=== PATIENT | female | born 1965 | race Caucasian/White ===

== ENCOUNTER 2018-08-02 11:33 | Emergency (ER) | payer OTHER ==
--- NOTE | 2018-08-02 11:51 | EDM.PDOC ---
ED HPI GENERAL MEDICAL PROBLEM - General Chief Complaint: Laceration Stated Complaint: laceration Time Seen by Provider: 08/02/18 11:45 Source of Information: Reports: Patient. Denies: Old Records (No [facility] records available) History Limitations: Reports: No Limitations - History of Present Illness INITIAL COMMENTS - FREE TEXT/NARRATIVE: The patient was brought to the emergency room via transport vehicle from [facility] for evaluation of a Workmen's Compensation injury, which occurred at about 10: 50 a.m. this morning. The patient was walking back from the bathroom when she had a minor stumble cutting her left forearm on a screen cart with no history of foreign body, fall, or other significant injury, including paresthesias, neurological deficits, exacerbation of her chronic neck/back pain, head injury, etc.. She rates her discomfort at 4-5/10 with laceration site washout with soap and water and dressing placed prior to arrival. The patient denies any chest pain/pressure, heart flutter, dizziness, orthostasis, orthopnea, diaphoresis, paresthesias, recent decreased exercise tolerance, or any other anginal-type symptoms. No recent history of abdominal pain, heartburn, nausea, diarrhea, melena, gross hematochezia, or any food intolerance, including fatty foods, etc.. The patient also denies any recent fever, cough, wheezing, dyspnea, etc.. She is right-handed. Onset: Today, Sudden Onset Date: 08/02/18 Onset Time: 10:50 Duration: Constant Location: Reports: Upper Extremity, Left. 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 HOUSE MOVER HELPER History: Reports: , Spontaneous : 2 Para: 1 LMP (Approximate): Other (See Below) Other HOUSE MOVER HELPER History: Menopause at age 48. Patient did have a tubal with surgery required at 6 weeks gestation as below. Otherwise, Full term without complications during pregnancies or deliveries Musculoskeletal History: Reports: Back Pain, Chronic, Neck Pain, Chronic, Osteoarthritis. Denies: Fracture, Gout, RA, SLE Neurological History: Reports: Other (See Below) Other Neuro History: Chronic insomnia - Past Surgical History Female Surgical History: Reports: Other (See Below) Other Female Surgeries/Procedures: Laparoscopic surgery for tubal in the . Neurological Surgical History: Reports: C-Spine, Spinal Fusion, Other (See Below ) Other Neurological Surgeries/Procedures: Spinal fusion of C3-C-4 in about 2012. Social & Family History - Tobacco Use Smoking Status *Q: Current Every Day Smoker Tobacco Use Within Last Twelve Months: Cigarettes Years of Tobacco use: 36 Packs/Tins Daily: 1 Packs/Tins Daily Comment: She started smoking at age 17. Used Tobacco, but Quit: No Smoking Cessation Information Provided To Patient: Yes Second Hand Smoke Exposure: No Second Hand Smoke Education Provided: No - Living Situation & Occupation Living situation: Reports: (1986, 1 child), with Family Occupation: Employed ([employer]) ED ROS GENERAL - Review of Systems Review Of Systems: ROS reveals no pertinent complaints other than HPI. ED EXAM, SKIN/RASH Exam: See Below Exam Limited By: No Limitations General Appearance: Alert, WD/WN, No Apparent Distress Head: Atraumatic, Normocephalic. No: Facial Swelling, Facial Tenderness, Sinus Tenderness Neck: Normal Inspection, Supple, Non-Tender, Full Range of Motion. No: Lymphadenopathy (L), Lymphadenopathy (R), Thyromegaly Respiratory/Chest: No Respiratory Distress, Lungs Clear, Normal Breath Sounds, No Accessory Muscle Use, Chest Non-Tender. No: Pleural Rub, Retractions Cardiovascular: Normal Peripheral Pulses, Regular Rate, Rhythm, No Edema, No Gallop, No JVD, No Murmur, No Rub. No: Gallop/S3, Gallop/S4, Friction Rub Peripheral Pulses: 2+: Radial (L), Radial (R) GI/Abdominal: Normal Bowel Sounds, Soft, Non-Tender, No Organomegaly, No Distention, No Abnormal Bruit, No Mass, Pelvis Stable. No: Guarding (Female) Exam: Deferred Rectal (Female) Exam: Deferred Extremities: Normal Range of Motion, No Pedal Edema, Normal Capillary Refill, Arm Pain (Mild tenderness over laceration site), Other (2.0 cm in length C- shaped laceration over the flexor aspect of the proximal left forearm with no foreign body noted. No significant vascular or nerve injury.). No: Tamra's Sign Neurological: Alert, Oriented, CN II-XII Intact, Normal Cognition, Normal Gait, No Motor/Sensory Deficits Psychiatric: Normal Affect, Normal Mood Skin: Warm, Dry, Normal Color, No Rash, Wound/Incision (As above). No: Diaphoretic Location, Skin: Upper Extremity, Left Characteristics: Other (As above) Associated features: Tenderness (As above). No: Lymphangitis Lymphatic: No Adenopathy ED SKIN PROCEDURES - Laceration/Wound Repair Left Lower Ventral Arm Lac/Wound length In cm: 2.0 Appearance: Superficial, Irregular, Clean Distal NVT: Neuro & Vascular Intact, No Tendon Injury Anesthetic Type: Local Local Anesthesia - Lidocaine (Xylocaine): 1% Plain Local Anesthetic Volume: Other (7.5 ml) Skin Prep: Providone-Iodine (Betadine) Saline Irrigation (cc's): 0 Exploration/Debridement/Repair: Wound Explored, In a Bloodless Field, Explored to Base, No Foreign Material Found, Multiple Flaps Aligned Closed with: Sutures Suture Size: 4-0 # of Sutures: 5 Suture Type: Nylon, Interrupted, Simple Drain Placement: No Sterile Dressing Applied: Nurse Tetanus Status Addressed: Yes Complications: No Course - Vital Signs Last Recorded V/S: Last Vital Signs Temp 36.8 C 08/02/18 12:27 Pulse 88 08/02/18 12:27 Resp 18 08/02/18 12:27 BP 123/46 L 08/02/18 12:27 Pulse Ox 95 08/02/18 12:27 Vital Signs - 24 hr 08/02/18 12:27 Temperature [ 36.8 C Temporal] Pulse, 88 Peripheral [ Right Pulse Oximetry] Respiratory 18 Rate Blood Pressure 123/46 L [Right Upper Arm] O2 Sat by Pulse 95 Oximetry - Orders/Labs/Meds Orders: Active Orders 24 hr Category Date Time Status Vaccines to be Administered [RC] PER UNIT ROUTINE Care 08/02/18 11:52 Active Obtain Past Medical Record [OM.PC] Routine Oth 08/02/18 11:52 Active Labs: None Meds: Medications Discontinued Medications Generic Name Dose Route Start Last Admin Trade Name Freq PRN Reason Stop Dose Admin Diphtheria/Tetanus/Acell Pertussis 0.5 ml 08/02/18 11:52 08/02/18 12:24 Adacel IM 08/02/18 11:53 0.5 ml .ONCE ONE Administration Lidocaine HCl 5 ml 08/02/18 11:52 08/02/18 11:56 Xylocaine-Mpf 1% INJECT 08/02/18 11:53 5 ml ONETIME ONE Administration Lidocaine HCl 5 ml 08/02/18 11:52 08/02/18 11:56 Xylocaine-Mpf 1% INJECT 08/02/18 11:53 5 ml ONETIME ONE Administration Neomycin/Polymyxin/Bacitracin 1 each 08/02/18 11:52 08/02/18 11:56 Triple Antibiotic Oint TOP 08/02/18 11:53 1 each ONETIME ONE Administration - Radiology Interpretation Free Text/Narrative:: None Departure - Departure Time of Disposition: 12:40 Disposition: Home, Self-Care 01 Condition: Good Clinical Impression: Laceration, Tobacco abuse counseling Osteoarthritis Qualifiers: Osteoarthritis location: multiple joints Osteoarthritis type: primary Qualified Code(s): M15.0 - Primary generalized (osteo)arthritis - Discharge Information *PRESCRIPTION DRUG MONITORING PROGRAM REVIEWED*: Not Applicable *COPY OF PRESCRIPTION DRUG MONITORING REPORT IN PATIENT ZEV: Not Applicable Instructions: Health Risks of Smoking, Laceration Care, Adult, [id number], Stitches, [place], or Adhesive Wound Closure, [id number], Steps to Quit Smoking Referrals: PCP,None [Primary Care Provider] - Forms: ED Department Discharge Additional Instructions: 1. Followup with your regular provider and/or company nurse in 10-14 days as directed for reevaluation and suture removal. Bring these discharge instructions with you to that visit. 2. Tylenol 650 mg by mouth every 4 hours and/or OTC ibuprofen 2-3 tabs by mouth every 6 hours with food as directed./needed. You may stagger these medications for 48-72 hours only, which essentially means that you are receiving a pain medication about every 2 hours. 3. Antibacterial soap wash/soak with subsequent antibacterial dressing such as Neosporin, etc. as directed 2 times per day until the wound or laceration site completely heals. Keep the area clean and dry with activity restrictions as discussed. Never use hydrogen peroxide for wound care. 4. Stop all tobacco use PAIGE as directed/per provided information and consider contacting Quit LIne, etc.. 5. Immediately after this visit verify that your cellular telephone's voicemail has been activated and is empty. Also verify that your home telephone 's answering machine is operating properly and has space to receive messages. Note that it is sometimes necessary for us to be able to contact you at a later date to discuss your medical care. 6. Please remember that we are ALWAYS here for you and want to answer any questions you may have. Feel free to call the hospital any time and we call you back PAIGE. - Problem List & Annotations (1) Laceration SNOMED Code(s): 114016615 Code(s): NAQ9030 - Status: Acute Priority: High Onset Date: 08/02/18 Annotation/Comment:: Last TdAP on 11/01/09, which was verified by the emergency room thru [facility]. TdAP given today in the emergency room. Excellent results with laceration repair as above. Workmen's Compensation and [place] work excuse forms were completed. Activity restrictions, care, etc. were discussed. (2) Osteoarthritis SNOMED Code(s): 833417989 Code(s): M19.90 - UNSPECIFIED OSTEOARTHRITIS, UNSPECIFIED SITE Status: Chronic Priority: Medium Annotation/Comment:: Stable by history Qualifiers: Osteoarthritis location: multiple joints Osteoarthritis type: primary Qualified Code(s): M15.0 - Primary generalized (osteo)arthritis (3) Tobacco abuse counseling SNOMED Code(s): 448602688, 542123439, [id number] Code(s): Z71.6 - TOBACCO ABUSE COUNSELING Status: Chronic Priority: Medium Annotation/Comment:: Tobacco cessation strongly encouraged. Information provided at discharge. - Problem List Review Problem List Initiated/Reviewed/Updated: Yes - My Orders Last 24 Hours: My Active Orders 08/02/18 11:52 Vaccines to be Administered [RC] PER UNIT ROUTINE Obtain Past Medical Record [OM.PC] Routine - Assessment/Plan Last 24 Hours: My Active Orders 08/02/18 11:52 Vaccines to be Administered [RC] PER UNIT ROUTINE Obtain Past Medical Record [OM.PC] Routine Assessment:: As above Plan: As above. Extensive precautions were given to the patient, who is in agreement with the treatment plan. See Patient Instructions for further treatment and plan.
[2018-08-02] MEDS ORDERED: Bacitracin/Neomycin/Polymyxin B Oint 0.9 GM U/D Packet TOP ONE (11:52)
[2018-08-02] MEDS ORDERED: Diphtheria,Pertussis(Acell),Tetanus Vaccine 0.5 ML SDV IM ONE (11:52)
== END 2018-08-02 12:40 | disposition home or self-care (01) ==
LOC: LL.ED 11:33
DX: S51.812A Laceration without foreign body of left forearm, initial encounter (principal); Z23 Encounter for immunization; F17.210 Nicotine dependence, cigarettes, uncomplicated; Z79.899 Other long term (current) drug therapy; W45.8XXA Other foreign body or object entering through skin, initial encounter; Y99.0 Civilian activity done for income or pay
CPT/HCPCS: 12001; 90471; 90715; 99283; J2001